=== PATIENT | male | born 1980 | race Caucasian/White ===

== ENCOUNTER 2017-01-29 14:30 | Emergency (ER) | payer MEDICAID ==
[~2017-01-29] VITALS: Ht 182.9 cm; Wt 129.3 kg
[2017-01-29 14:39] VITALS: BP 143/81
[2017-01-29 15:40] LABS: Basophils # (auto) 0 uL; Basophils % (auto) 0.3 % (0.0-2.0); CONDITION Y; Eosinophils # (auto) 0.5 uL; Eosinophils % (auto) 6.3 % (0.0-7.0); Hematocrit 44.8 % (41.0-53.0); Hemoglobin 15.6 g/dL (13.5-17.5); Lymphocytes # (auto) 2.2 uL; Lymphocytes % (auto) 29.5 % (10.0-50.0); Mean Corpuscular Hemoglobin 28.8 pg (28.0-32.0); Mean Corpuscular Hgb Conc. 34.7 g/dL (32.0-36.0); Mean Corpuscular Volume 82.8 fL (80.0-100.0); Mean Platelet Volume 8.6 fL (7.4-10.4); Monocytes # (auto) 0.4 uL; Monocytes % (auto) 4.9 % (0.0-12.0); Neutrophils # (auto) 4.4 uL; Platelet Count (auto) 220 10^3/uL (140-450); Red Cell Distribution Width 14.4 % (11.6-16.0); White Blood Cell 7.5 10^3/uL (4.4-10.8)
[2017-01-29 15:57] LABS: Amylase 32 U/L (25-115)
[2017-01-29 16:42] LABS: Urine Bilirubin Negative (Negative); Urine Blood Negative /uL (Negative); Urine Color Yellow (Yellow); Urine Glucose Normal (Normal); Urine Ketone Negative (Negative); Urine Mucus FEW (None Seen); Urine Nitrite Negative (Negative); Urine RBC 1 /hpf (0 - 3); Urine Squamous Epithelial Cell FEW /hpf (<5); Urine Urobilinogen Normal (Negative); Urine pH 5.5 (5.0-8.0)
== END 2017-01-29 21:42 | disposition home or self-care (01) ==
LOC: ER 14:34
DX: K52.9 Noninfective gastroenteritis and colitis, unspecified (principal); F17.210 Nicotine dependence, cigarettes, uncomplicated; Z88.0 Allergy status to penicillin
CPT/HCPCS: 36415; 74176; 81001; 82150; 82962; 83690; 85025

== ENCOUNTER 2021-02-12 12:49 | Emergency (ER) | payer MEDICAID ==
[~2021-02-12] VITALS: Ht 182.9 cm; Wt 99.8 kg
[2021-02-12] MEDS ORDERED: HYDROmorphone HCL 2 MG/ML VL IV ONE ×3 (14:00→19:45)
[2021-02-12] MEDS ORDERED: SODIUM CHLORIDE 0.9% 500 ML IVB ONE (14:00)
[2021-02-12] MEDS ORDERED: SODIUM CHLORIDE 0.9% 1,000 ML IV ONE (14:00)
[2021-02-12] MEDS: PROMETHAZINE HCL 25 MG/ML 1ML IV PRN ×2 (14:15→19:54)
[2021-02-12 14:44] LABS: Hemoglobin 13.7 g/dL (13.5-17.5); Mean Corpuscular Hemoglobin 28.2 pg (28.0-32.0); Mean Corpuscular Hgb Conc. 35.1 g/dL (32.0-36.0); Mean Corpuscular Volume 80.2 fL (80.0-100.0); Red Blood Cells 4.86 10^6/uL (4.5-5.90); Red Cell Distribution Width 17.4 % (11.8-14.3); White Blood Cell 2.1 10^3/uL (4.4-10.8)
[2021-02-12 14:49] LABS: Basophils % (manual) 0 (0.0-2.0); Blast Cells 0; Eosinophils % (manual) 0 (0-7); Metamyelocytes % 0; Myelocytes % 0; Promyelocytes % 0; Reactive Lymphocytes 0
[2021-02-12 14:56] LABS: INR 1.18 (0.9-1.15); Partial Thromboplastin Time 25.5 sec (23.0-31.2)
[2021-02-12 14:57] LABS: Alanine Aminotransferase 24 U/L (16-61); Anion Gap 13 (5-15); Aspartate Aminotransferase 15 U/L (15-37); BUN/Creatinine Ratio 24.2; Blood Urea Nitrogen 24 mg/dL (7-18); Calcium 8.7 mg/dL (8.5-10.1); Carbon Dioxide 23 mmol/L (21-32); Chloride 94 mmol/L (98-107); GFR African American 107 mL/min; GFR Non-African American 88 mL/min; Glucose 200 mg/dL (74-106); Magnesium 3.4 mg/dL (1.6-2.6); Potassium 3.8 mmol/L (3.5-5.1); Sodium 130 mmol/L (136-145)
[2021-02-12 14:58] LABS: Lactic Acid w/Reflex 5.1 mmol/L (0.4-2.0)
[2021-02-12 15:02] LABS: Alkaline Phosphatase 131 U/L (45-117); Bilirubin, Total 1.7 mg/dL (0.2-1.0); Total Protein 7.5 g/dL (6.4-8.2)
[2021-02-12] MEDS ORDERED: IOHEXOL 300 MG/ML 100ML BOTTLE IJ ONE (15:11)
[2021-02-12 15:17] LABS: Band Neutrophils % (manual) 4; Lymphocytes % (manual) 30 (10.0-50.0); Monocytes % (manual) 11 (0-12)
[2021-02-12] MEDS ORDERED: PROMETHAZINE HCL 25 MG/ML 1ML IV ONE (16:30)
[2021-02-12] MEDS ORDERED: cefTRIAXone 1GM/50ML D5W 50 ML IV ONE (17:45)
[2021-02-12] MEDS ORDERED: metroNIDAZOLE 500MG/100ML 100 ML IV ONE (17:45)
[2021-02-12] MEDS ORDERED: LABETALOL HCL 5 MG/ML 4ML SYRINGE IV ONE (19:45)
[2021-02-12] MEDS ORDERED: SODIUM BICARBONATE 8.4 % INJ 50ML VIAL IV ONE (21:30)
[2021-02-12 23:13] VITALS: BP 152/97
== END 2021-02-12 23:35 | disposition short-term general hospital (02) ==
LOC: ER 12:49
DX: K56.609 Unspecified intestinal obstruction, unspecified as to partial versus complete obstruction (principal); E11.65 Type 2 diabetes mellitus with hyperglycemia; C19 Malignant neoplasm of rectosigmoid junction; R74.02 Elevation of levels of lactic acid dehydrogenase [LDH]; E46 Unspecified protein-calorie malnutrition; F17.210 Nicotine dependence, cigarettes, uncomplicated; Z68.29 Body mass index [BMI] 29.0-29.9, adult; Z90.49 Acquired absence of other specified parts of digestive tract; Z88.0 Allergy status to penicillin; Z20.822 Contact with and (suspected) exposure to COVID-19
CPT/HCPCS: 36415; 71045; 74177; 80053; 83605; 83690; 83735; 84484; 85007; 85027; 85049; 85610; 85730; 86850; 86900; 86901; 87040; 87426; 93005; 96361; 96365; 96368; 96375; 96376; 99285; J0696; J1170; J2550; J3490; J7030; J7040; Q9967